=== PATIENT | female | born 1995 | race Caucasian/White ===

== ENCOUNTER 2019-02-13 19:05 | Emergency (ER) | payer BC ==
[2019-02-13 19:38] VITALS: RESP 18
[2019-02-13] MEDS ORDERED: SODIUM CHLORIDE 0.9% 1,000 ML IV STA (20:10)
[2019-02-13 20:34] LABS: Basophils # (A) 0.1 k/uL (0-0.2); Basophils % (A) 1 %; Eosinophils # (A) 0.2 k/uL (0-0.7); Eosinophils % (A) 2 %; HCT 39.2 % (34.0-46.0); HGB 13.1 gm/dL (11.4-16.0); Lymphocytes # (A) 2.8 k/uL (1.0-4.8); Lymphocytes % (A) 32 %; MCH 29.3 pg (25.0-35.0); MCHC 33.5 g/dL (31.0-37.0); MCV 87.3 fL (80.0-100.0); Mean Platelet Volume 7.4; Monocytes # (A) 0.4 k/uL (0-1.0); Monocytes % (A) 5 %; Neutrophils # (A) 5.1 k/uL (1.3-7.7); Neutrophils % (A) 58 %; Platelet Count 291 k/uL (150-450); RBC 4.49 m/uL (3.80-5.40); RDW 14.6 % (11.5-15.5); WBC 8.8 k/uL (3.8-10.6)
[2019-02-13 20:45] LABS: ALT 67 U/L (9-52); AST 40 U/L (14-36); Albumin 4.3 g/dL (3.5-5.0); Alkaline Phosphatase 89 U/L (38-126); Amylase 151 U/L (30-110); Anion Gap 12 mmol/L; Blood Urea Nitrogen 13 mg/dL (7-17); Calcium 9.2 mg/dL (8.4-10.2); Carbon Dioxide 22 mmol/L (22-30); Chloride 107 mmol/L (98-107); Glucose 100 mg/dL (74-99); Lipase 672 U/L (23-300); Potassium 3.5 mmol/L (3.5-5.1); Sodium 141 mmol/L (137-145); Total Bilirubin 0.4 mg/dL (0.2-1.3); Total Protein 7.3 g/dL (6.3-8.2)
[2019-02-13 20:50] LABS: Appearance,Urine Clear (Clear); Bacteria,Urine Rare /hpf; Bilirubin,Urine Negative (Negative); Blood,Urine Moderate (Negative); Color,Urine Yellow; Glucose,Urine (UA) Negative (Negative); Ketones,Urine Negative (Negative); Leukocyte Esterase,Urine Negative (Negative); Mucus,Urine Rare /hpf; Nitrite,Urine Negative (Negative); Protein,Urine Negative (Negative); RBC,Urine 68 /hpf (0-5); Specific Gravity,Urine 1.021 (1.001-1.035); Squamous Epithelial Cell,Urine 2 /hpf (0-4); Urobilinogen,Urine <2.0 mg/dL (<2.0); WBC,Urine 3 /hpf (0-5)
--- NOTE | 2019-02-13 21:15 | XR ---
EXAMINATION TYPE: XR chest 2V DATE OF EXAM: 02/13/2019 COMPARISON: NONE HISTORY: Chest and right-sided pain. History of tobacco use. TECHNIQUE: Frontal and lateral views of the chest are obtained. FINDINGS: There is no focal air space opacity, pleural effusion, or pneumothorax seen. The cardiac silhouette size is within normal limits. Overlying bra strap is present. The osseous structures are intact. IMPRESSION: No acute cardiopulmonary process.
--- NOTE | 2019-02-13 21:26 | US ---
EXAMINATION TYPE: US transvaginal DATE OF EXAM: 02/13/2019 COMPARISON: NONE CLINICAL HISTORY: Pain. Abnormal bleeding TECHNIQUE: Transvaginal (TV). Date of LMP: 01/31/2019 EXAM MEASUREMENTS: Uterus: 9.2 x 4.1 x 5.5 cm Endometrial Stripe: 0.7 cm Right Ovary: 3.0 x 1.9 x 2.3 cm Left Ovary: 2.9 x 1.8 x 2.3 cm 1. Uterus: Anteverted wnl 2. Endometrium: wnl 3. Right Ovary: wnl 4. Left Ovary: Cystic area 2.1 x .9 x .9cm. Spectral, color and waveform doppler imaging shows good arterial and venous flow within the ovaries 5. Bilateral Adnexa: wnl 6. Posterior cul-de-sac: wnl Heterogeneous uterus is seen. Endometrial stripe measures 7 mm which is within normal limits. No free fluid in pelvic cul-de-sac. Both ovaries are present. There is poorly defined roughly 1 cm follicle presumed in the periphery of the left ovary. No suspicious adnexal lesions are seen. IMPRESSION: Fairly unremarkable study.
--- NOTE | 2019-02-13 22:08 | US ---
EXAM: US Abdomen Limited, Right Upper Quadrant CLINICAL HISTORY: Pain TECHNIQUE: Real-time ultrasound of the right upper quadrant with image documentation. COMPARISON: No relevant prior studies available. FINDINGS: Liver: Liver is mildly enlarged measuring up to 18.7 cm. No intrahepatic bile duct dilation. Gallbladder: No gallstones, sludge, wall thickening or pericholecystic fluid. Negative sonographic Quiroz's sign. Common bile duct: Common bile duct measures 5 mm. No stones. No dilation. Pancreas: Pancreas is obscured by bowel gas. Right kidney: Right kidney measures up to 10.0 cm. No stones. No hydronephrosis. IMPRESSION: No acute findings.
--- NOTE | 2019-02-13 22:26 | ED ---
General Adult HPI - General Source: patient Mode of arrival: ambulatory Limitations: no limitations <Sabrina Crowell - Last Filed: 02/13/19 23:51> <Sienna Levy - Last Filed: 02/14/19 07:37> - General Chief complaint: Vaginal Bleeding Stated complaint: abd pain Time Seen by Provider: 02/13/19 19:41 - History of Present Illness Initial comments: 24-year-old female patient presents to the emergency department today for multiple complaints. Patient states she is having vaginal bleeding. Patient states that her period ended 2 weeks ago however she started bleeding again 2 days ago. Patient states that she is having to wear a tampon. Patient states that she has never had bleeding between periods before. She states she is currently sexually active with a new partner. Denies any abnormal vaginal d ischarge prior to onset of bleeding. She denies any pelvic pain. Patient is also reporting right upper quadrant abdominal pain is been going on for the last several days. Patient states the pain is sharp and stabbing and worsens when she takes a deep breath or coughs. Patient states it feels like it is under her ribs. Patient denies history of similar symptoms. Denies nausea or vomiting. Denies any constipation or diarrhea. States she is tolerating oral intake without difficulty. Denies any fever or chills. Patient denies any recent rash, shortness breath, chest pain, back pain, numbness, tingling, dizziness, weakness, headache, visual changes, or any other complaints. (Sabrina Crowell) - Related Data Allergies Allergy/AdvReac Type Severity Reaction Status Date / Time No Known Allergies Allergy Verified 02/13/19 19:37 Review of Systems ROS Other: All systems not noted in ROS Statement are negative. <Sabrina Crowell - Last Filed: 02/13/19 23:51> ROS Other: All systems not noted in ROS Statement are negative. <Sienna Levy - Last Filed: 02/14/19 07:37> ROS Statement: Those systems with pertinent positive or pertinent negative responses have been documented in the HPI. Past Medical History Past Medical History: No Reported History History of Any Multi-Drug Resistant Organisms: None Reported Past Surgical History: No Surgical Hx Reported Past Psychological History: ADD/ADHD, Anxiety, Depression Smoking Status: Current every day smoker Past Alcohol Use History: Occasional Past Drug Use History: None Reported <Sabrina Crowell M - Last Filed: 02/13/19 23:51> General Exam Limitations: no limitations General appearance: alert, in no apparent distress, other (Physical well- developed, well-nourished adult female patient in no acute distress. Vital signs upon presentation are temperature 98.5F, pulse 79, respirations 18, blood pressure 159/100, pulse ox 98% on room air.) Eye exam: Present: normal appearance, PERRL, EOMI. Absent: scleral icterus, conjunctival injection, periorbital swelling ENT exam: Present: normal exam, normal oropharynx, mucous membranes moist Respiratory exam: Present: normal lung sounds bilaterally. Absent: respiratory distress, wheezes, rales, rhonchi, stridor Cardiovascular Exam: Present: regular rate, normal rhythm, normal heart sounds. Absent: systolic murmur, diastolic murmur, rubs, gallop, clicks GI/Abdominal exam: Present: soft, tenderness (midepigastric, negative quiroz's sign), normal bowel sounds. Absent: distended, guarding, rebound, rigid External exam: Present: normal external exam Speculum exam: Present: vaginal bleeding By manual exam: Present: normal by manual exam Neurological exam: Present: alert, oriented X3, CN II-XII intact Psychiatric exam: Present: normal affect, normal mood Skin exam: Present: warm, dry, intact, normal color. Absent: rash <Sabrina Crowell M - Last Filed: 02/13/19 23:51> Course Vital Signs 02/13/19 02/13/19 19:34 22:25 Temperature 98.5 F 97.8 F Pulse Rate 79 74 Respiratory 18 18 Rate Blood Pressure 159/100 153/90 O2 Sat by Pulse 98 100 Oximetry Medical Decision Making - Lab Data Result diagrams: 02/13/19 20:20 02/13/19 20:20 - Radiology Data Radiology results: report reviewed, image reviewed <Sabrina Crowell - Last Filed: 02/13/19 23:51> - Lab Data Result diagrams: 02/13/19 20:20 02/13/19 20:20 <Sienna Levy - Last Filed: 02/14/19 07:37> - Medical Decision Making 24-year-old female patient presents to the emergency department today for evaluation of right upper quadrant abdominal pain and vaginal bleeding. Physical examination did reveal a mild amount of dark red vaginal bleeding. No adnexal or uterine tenderness. Lower abdomen was soft and nontender. Patient did have some midepigastric tenderness, negative Quiroz sign. Labs reviewed and did reveal elevated AST at 40, ALT 67, amylase 151, lipase 672. Urinalysis showed red blood cells consistent with her vaginal bleeding. I did perform a chest x-ray prior to labs coming back as patient also has had a cough for the last couple of days, this is unremarkable. Transvaginal ultrasound shows no acute abnormalities. Did perform ultrasound of the right upper quadrant abdomen which showed no acute abnormalities other than enlarged liver. Did discuss findings and results with the patient. Did discuss pancreatitis as a cause for her abdominal pain. She is instructed follow clear liquid diet for the next 1-2 days and advance as tolerated. She is instructed to follow-up with her primary care physician for referral to gastroenterology. Instructed follow with her health and physical education professor for dysfunction uterine bleeding. Return parameters were discussed in detail. She verbalizes understanding and agrees with this plan. (Sabrina Crowell) I was available for consultation in the emergency department. The history and physical exam were done by the midlevel provider. I was consulted for this patient's care. I reviewed the case with the midlevel provider and based on their presentation of the patient, I agree with the assessment, medical decision making and plan of care as documented. (Sienna Levy) - Lab Data Lab Results 02/13/19 02/13/19 02/13/19 Range/Units 20:20 20:20 20:20 WBC 8.8 (3.8-10.6) k/uL RBC 4.49 (3.80-5.40) m/uL Hgb 13.1 (11.4-16.0) gm/dL Hct 39.2 (34.0-46.0) % MCV 87.3 (80.0-100.0) fL MCH 29.3 (25.0-35.0) pg MCHC 33.5 (31.0-37.0) g/dL RDW 14.6 (11.5-15.5) % Plt Count 291 (150-450) k/uL Neutrophils % 58 % Lymphocytes % 32 % Monocytes % 5 % Eosinophils % 2 % Basophils % 1 % Neutrophils # 5.1 (1.3-7.7) k/uL Lymphocytes # 2.8 (1.0-4.8) k/uL Monocytes # 0.4 (0-1.0) k/uL Eosinophils # 0.2 (0-0.7) k/uL Basophils # 0.1 (0-0.2) k/uL Sodium 141 (137-145) mmol/L Potassium 3.5 (3.5-5.1) mmol/L Chloride 107 (98-107) mmol/L Carbon Dioxide 22 (22-30) mmol/L Anion Gap 12 mmol/L BUN 13 (7-17) mg/dL Creatinine 0.58 (0.52-1.04) mg/dL Est GFR (CKD-EPI)AfAm >90 (>60 ml/min/1.73 sqM) Est GFR (CKD-EPI)NonAf >90 (>60 ml/min/1.73 sqM) Glucose 100 H (74-99) mg/dL Calcium 9.2 (8.4-10.2) mg/dL Total Bilirubin 0.4 (0.2-1.3) mg/dL AST 40 H (14-36) U/L ALT 67 H (9-52) U/L Alkaline Phosphatase 89 (38-126) U/L Total Protein 7.3 (6.3-8.2) g/dL Albumin 4.3 (3.5-5.0) g/dL Amylase 151 H (30-110) U/L Lipase 672 H (23-300) U/L Urine Color Urine Appearance (Clear) Urine pH (5.0-8.0) Ur Specific [place] (1.001-1.035) Urine Protein (Negative) Urine Glucose (UA) (Negative) Urine Ketones (Negative) Urine Blood (Negative) Urine Nitrite (Negative) Urine Bilirubin (Negative) Urine Urobilinogen (<2.0) mg/dL Ur Leukocyte Esterase (Negative) Urine RBC (0-5) /hpf Urine WBC (0-5) /hpf Ur Squamous Epith Cells (0-4) /hpf Urine Bacteria (None) /hpf Urine Mucus (None) /hpf Urine HCG, Qual Not Detected (Not Detectd) 02/13/19 Range/Units 20:20 WBC (3.8-10.6) k/uL RBC (3.80-5.40) m/uL Hgb (11.4-16.0) gm/dL Hct (34.0-46.0) % MCV (80.0-100.0) fL MCH (25.0-35.0) pg MCHC (31.0-37.0) g/dL RDW (11.5-15.5) % Plt Count (150-450) k/uL Neutrophils % % Lymphocytes % % Monocytes % % Eosinophils % % Basophils % % Neutrophils # (1.3-7.7) k/uL Lymphocytes # (1.0-4.8) k/uL Monocytes # (0-1.0) k/uL Eosinophils # (0-0.7) k/uL Basophils # (0-0.2) k/uL Sodium (137-145) mmol/L Potassium (3.5-5.1) mmol/L Chloride (98-107) mmol/L Carbon Dioxide (22-30) mmol/L Anion Gap mmol/L BUN (7-17) mg/dL Creatinine (0.52-1.04) mg/dL Est GFR (CKD-EPI)AfAm (>60 ml/min/1.73 sqM) Est GFR (CKD-EPI)NonAf (>60 ml/min/1.73 sqM) Glucose (74-99) mg/dL Calcium (8.4-10.2) mg/dL Total Bilirubin (0.2-1.3) mg/dL AST (14-36) U/L ALT (9-52) U/L Alkaline Phosphatase (38-126) U/L Total Protein (6.3-8.2) g/dL Albumin (3.5-5.0) g/dL Amylase (30-110) U/L Lipase (23-300) U/L Urine Color Yellow Urine Appearance Clear (Clear) Urine pH 6.0 (5.0-8.0) Ur Specific [place] 1.021 (1.001-1.035) Urine Protein Negative (Negative) Urine Glucose (UA) Negative (Negative) Urine Ketones Negative (Negative) Urine Blood Moderate H (Negative) Urine Nitrite Negative (Negative) Urine Bilirubin Negative (Negative) Urine Urobilinogen <2.0 (<2.0) mg/dL Ur Leukocyte Esterase Negative (Negative) Urine RBC 68 H (0-5) /hpf Urine WBC 3 (0-5) /hpf Ur Squamous Epith Cells 2 (0-4) /hpf Urine Bacteria Rare H (None) /hpf Urine Mucus Rare H (None) /hpf Urine HCG, Qual (Not Detectd) - Radiology Data Two-view x-ray of the chest is obtained. Report reviewed in its entirety. Impression by Dr. Zhu shows no acute cardiopulmonary process. Transvaginal ultrasound was obtained. Report was reviewed in its entirety. Impression by Dr. Zhu shows fairly unremarkable study. Right upper quadrant abdominal ultrasound was obtained. First its entirety. Impression by Dr. Torres shows no acute findings. (Sabrina Crowell) Disposition Is patient prescribed a controlled substance at d/c from ED?: No Time of Disposition: 22:26 <Sabrina Crowell - Last Filed: 02/13/19 23:51> <Sienna Levy - Last Filed: 02/14/19 07:37> Clinical Impression: Dysfunctional uterine bleeding, Pancreatitis Disposition: HOME SELF-CARE Condition: Good Instructions (If sedation given, give patient instructions): Dysfunctional Ut erine Bleeding (ED), Pancreatitis (ED) Additional Instructions: Increase fluids. Clear liquid diet for the next 2 days. Follow-up with your primary care physician for recheck in 1-2 days. Follow-up with gastroenterology for recheck as soon as possible. Follow-up with her health and physical education professor for further evaluation. Return to emergency department immediately for any new, worsening, or concerning symptoms. Referrals: Nimisha Mills MD [Primary Care Provider] - 1-2 days
[2019-02-13 22:29] VITALS: BP 153/90; PULSE 74; TEMP 97.8
== END 2019-02-13 22:36 | disposition home or self-care (01) ==
LOC: EC 19:05
DX: N93.8 Other specified abnormal uterine and vaginal bleeding (principal); K85.90 Acute pancreatitis without necrosis or infection, unspecified; R74.0 Nonspecific elevation of levels of transaminase and lactic acid dehydrogenase [LDH]; R74.8 Abnormal levels of other serum enzymes; R16.0 Hepatomegaly, not elsewhere classified; R05 Cough; F17.200 Nicotine dependence, unspecified, uncomplicated
CPT/HCPCS: 36415; 71046; 76705; 76830; 80053; 81001; 81025; 82150; 83690; 85025; 93975; 96360; 96361; 99284

== ENCOUNTER 2021-09-11 10:31 | Emergency (ER) | payer BC, OTHER ==
[2021-09-11 10:40] VITALS: RESP 18; TEMP 98
--- NOTE | 2021-09-11 10:49 | ED ---
General Adult HPI - General Chief complaint: Alcohol Stated complaint: ETOH Time Seen by Provider: 09/11/21 10:43 Source: EMS Mode of arrival: EMS Limitations: no limitations - History of Present Illness Initial comments: Dictation was produced using [employer] dictation software. please excuse any grammatical, word or spelling errors. Chief Complaint: 26-year-old female presents to emergency department for alcohol intoxication. History of Present Illness: Patient is a 26-year-old female presents to the emergency department for acute alcohol intoxication. Patient drinks approximately 1 pint of liquor daily. She's been doing this for the last several months. Patient last alcoholic beverage was early this morning. He checked into alcohol rehab however they refused admission as above the level of her alcohol intoxication. Pain starts in her to the emergency department to be evaluated. Patient has no medical complaints at this time. She does however report that she fell and hurt her face while drunk. She states that the event occurred 1 week ago. Denies any numbness and paresthesias. She has no abdominal pain. The ROS documented in this emergency department record has been reviewed and confirmed by me. Those systems with pertinent positive or negative responses have been documented in the HPI. All other systems are other negative and/or noncontributory. PHYSICAL EXAM: General Impression: Alert and oriented x3, not in acute distress, inebriated, smells of EtOH HEENT: Normocephalic atraumatic, extra-ocular movements intact, pupils equal and reactive to light bilaterally, mucous membranes moist. Cardiovascular: Heart regular rate and rhythm Chest: Able to complete full sentences, no retractions, no tachypnea Abdomen: abdomen soft, non-tender, non-distended, no organomegaly Musculoskeletal: Pulses present and equal in all extremities, no peripheral edema Motor: no focal deficits noted Neurological: CN II-XII grossly intact, no focal motor or sensory deficits noted Skin: Intact with no visualized rashes Psych: Normal affect and mood ED course: 26-year-old female redirected here from alcohol rehab facility for acute alcohol intoxication. Vital signs upon arrival are within acceptable limits. Laboratory evaluation obtained. CBC remarkable. Metabolic panel shows a 132, mild gap acidosis, alcohol 43. Clinical presentation consistent with a daily to reactive intoxication with alcoholic ketoacidosis. Patient given fluids. Patient be admitted to [facility]. - Related Data Allergies Allergy/AdvReac Type Severity Reaction Status Date / Time lamotrigine [From Lamictal] Allergy Rash/Hives Verified 09/11/21 10:40 Review of Systems ROS Statement: Those systems with pertinent positive or pertinent negative responses have been documented in the HPI. ROS Other: All systems not noted in ROS Statement are negative. Past Medical History Past Medical History: No Reported History History of Any Multi-Drug Resistant Organisms: None Reported Past Surgical History: No Surgical Hx Reported Past Psychological History: ADD/ADHD, Anxiety, Depression Smoking Status: Current every day smoker Past Alcohol Use History: Abuse, Daily, Heavy, Occasional Past Drug Use History: None Reported General Exam Limitations: no limitations Course Vital Signs 09/11/21 10:36 Temperature 98 F Pulse Rate 98 Respiratory 18 Rate Blood Pressure 112/69 O2 Sat by Pulse 98 Oximetry Medical Decision Making - Lab Data Result diagrams: 09/11/21 12:10 09/11/21 10:48 Lab Results 09/11/21 09/11/21 09/11/21 Range/Units 10:40 10:48 12:10 WBC 4.8 (3.8-10.6) k/uL RBC 4.26 (3.80-5.40) m/uL Hgb 14.9 (11.4-16.0) gm/dL Hct 42.2 (34.0-46.0) % MCV 99.3 (80.0-100.0) fL MCH 35.0 (25.0-35.0) pg MCHC 35.2 (31.0-37.0) g/dL RDW 14.6 (11.5-15.5) % Plt Count 182 (150-450) k/uL MPV 7.9 Neutrophils % 51 % Lymphocytes % 40 % Monocytes % 5 % Eosinophils % 0 % Basophils % 1 % Neutrophils # 2.5 (1.3-7.7) k/uL Lymphocytes # 1.9 (1.0-4.8) k/uL Monocytes # 0.3 (0-1.0) k/uL Eosinophils # 0.0 (0-0.7) k/uL Basophils # 0.0 (0-0.2) k/uL Macrocytosis Slight Sodium 132 L (137-145) mmol/L Potassium 4.0 (3.5-5.1) mmol/L Chloride 96 L (98-107) mmol/L Carbon Dioxide 19 L (22-30) mmol/L Anion Gap 17 mmol/L BUN 9 (7-17) mg/dL Creatinine 0.67 (0.52-1.04) mg/dL Est GFR (CKD-EPI)AfAm >90 (>60 ml/min/1.73 sqM) Est GFR (CKD-EPI)NonAf >90 (>60 ml/min/1.73 sqM) Glucose 115 H (74-99) mg/dL Calcium 8.3 L (8.4-10.2) mg/dL Magnesium 1.7 (1.6-2.3) mg/dL Urine HCG, Qual Not Detected (Not Detectd) Serum Alcohol 483 H* mg/dL Disposition Clinical Impression: Alcoholic ketoacidosis Disposition: ADMITTED IP TO THIS HOSP Condition: Fair Referrals: Nigel Avery [Primary Care Provider] - 1-2 days
[2021-09-11 11:14] LABS: African American GFR (CKD) >90 (>60 ml/min/1.73 sqM); Anion Gap 17 mmol/L; Blood Urea Nitrogen 9 mg/dL (7-17); Calcium 8.3 mg/dL (8.4-10.2); Carbon Dioxide 19 mmol/L (22-30); Chloride 96 mmol/L (98-107); Glucose 115 mg/dL (74-99); Magnesium 1.7 mg/dL (1.6-2.3); Non-African American GFR(CKD) >90 (>60 ml/min/1.73 sqM); Sodium 132 mmol/L (137-145)
[2021-09-11 11:27] LABS: Alcohol 483 mg/dL
[2021-09-11] MEDS ORDERED: ACETAMINOPHEN TAB 325 MG TAB PO STA (12:11)
--- NOTE | 2021-09-11 12:55 | CT ---
EXAMINATION TYPE: [facility] DATE OF EXAM: 09/11/2021 COMPARISON: None INDICATION: ams, fall DLP: combined DLP 1192 mGycm, Automated exposure control for dose reduction was used. CONTRAST: None CT of the brain is performed utilizing 3 mm thick sections through the posterior fossa and 3 mm thick sections through the remaining calvarium. Study is performed within 24 hours of arrival to the hosp [facility]. No abnormal hyperdensity is present to suggest an acute intracranial hemorrhage. No mass lesion is evident. No acute infarcts are evident. Ventricles and sulci are appropriate for the patient age. Paranasal sinuses and mastoid air cells within the [id number] are clear. Symptoms persist, follow-up MRI can be performed. IMPRESSIONS: 1. No acute intracranial process. EXAMINATION TYPE: CT brain [facility] con DATE OF EXAM: 09/11/2021 COMPARISON: None HISTORY: ams, fall CT DLP: combined DLP 1192 mGycm CONTRAST: None CT of the cervical spine is performed in the axial plane at 2 mm thick sections. Reconstructed image s in the coronal, and sagittal plane are reviewed on the computer. No acute fractures are evident. Vertebral body alignment is normal. Disc heights are preserved. Vertebral body heights are preserved. No spinal canal stenosis is evident No neural foraminal stenosis is evident. IMPRESSIONS: 1. No acute osseous abnormality cervical spine
--- NOTE | 2021-09-11 12:57 | CT ---
EXAMINATION TYPE: CT facial bones wo con DATE OF EXAM: 09/11/2021 COMPARISON: None HISTORY: ams, fall, pain CT DLP: combined DLP 119 mGycm Automated exposure control for dose reduction was used. TECHNIQUE: CT scan of the sinuses is performed without contrast, axial images are obtained, coronal r eformatted images are also reviewed. FINDINGS: Changes of chronic sinusitis are noted. Osseous structures intact. Visualized orbital struc tures are symmetric. Intracranial structures symmetric. Oropharynx and nasopharynx have a normal appe arance. Lies parotid and submandibular glands have a normal appearance. There is a piercing along the right nostril. IMPRESSION: No acute fracture.
[2021-09-11 13:03] LABS: Basophils % (A) 1 %; Eosinophils % (A) 0 %; HCT 42.2 % (34.0-46.0); HGB 14.9 gm/dL (11.4-16.0); Lymphocytes # (A) 1.9 k/uL (1.0-4.8); Lymphocytes % (A) 40 %; MCHC 35.2 g/dL (31.0-37.0); MCV 99.3 fL (80.0-100.0); Macrocytosis Slight; Mean Platelet Volume 7.9; Monocytes # (A) 0.3 k/uL (0-1.0); Monocytes % (A) 5 %; Neutrophils # (A) 2.5 k/uL (1.3-7.7); Neutrophils % (A) 51 %; Platelet Count 182 k/uL (150-450); RBC 4.26 m/uL (3.80-5.40); RDW 14.6 % (11.5-15.5); WBC 4.8 k/uL (3.8-10.6)
[2021-09-11] MEDS ORDERED: NALOXONE 0.4 MG/ML 1 ML VIAL IV PRN (13:45)
[2021-09-11] MEDS ORDERED: SODIUM CHLORIDE 0.9% 1,000 ML IV SCH (13:45)
[2021-09-11] MEDS ORDERED: LORazepam 2 MG/ML INJ IV PRN ×3 (13:48)
[2021-09-11] MEDS ORDERED: THIAMINE 100 MG/ML 2 ML VIAL IM STA (13:48)
[2021-09-11 15:01] VITALS: BP 132/78; PULSE 100
--- NOTE | 2021-09-11 15:05 | P.HPIM ---
History of Present Illness H&P Date: 09/11/21 The patient is a 26-year-old female with a PMH of EtOH abuse who presents to the emergency room with alcohol intoxication. The patient reports that she has been drinking roughly a pint of vodka daily for the past 5 years. She was seen at [facility] earlier today but was sent to the emergency room as she was actively intoxicated. The patient reports that her last drink was at 8 AM this morning and she presented to [facility] at 9 am. The patient reports feeling significantly better ever since presenting to the emergency room. She denied ever experiencing alcohol withdrawal seizures, delirium tremens, or being hospitalized for her drinking. The patient further denied chest discomfort, shortness of breath, fever, chills, cough. Also denied nausea, vomiting, abdominal pain, diarrhea. Patient reports that she wishes to be discharged to [facility]. Discussed the case signed watch case polisher in detail who subsequently called [facility] and confirmed that they are happy to come picker and sorter load and unload the patient. There are also able to treat the patient for possible detoxification. Spoke with the patient regarding this who was eager to be discharged. The patient had been ambulating in the hallways in the emergency room and was able to ambulate on my physical examination without difficulty. Laboratory evaluation was reviewed. Review of systems: Pertinent positives and negatives as discussed in HPI, a complete review of systems was performed and all other systems are negative. Physical examination: General: non toxic, no distress, appears at stated age, obese Derm: no unusual rashes/lesions no unusual ecchymoses, warm, dry Head: atraumatic, normocephalic, symmetric Eyes: EOMI, no lid lag, anicteric sclera, pupils equal round reactive to light ENT: Nose and ears atraumatic, no thrush, no pharyngeal erythema Neck: No thyromegaly, no cervical lymphadenopathy, trachea midline, supple Mouth: no lip lesion, mucus membranes dry Cardiovascular: S1S2 reg, no murmur, positive posterior tibial pulse bilateral, no edema, capillary refill less than 2 seconds Lungs: CTA bilateral, no rhonchi, no rales , no accessory muscle use Abdominal: soft, nontender to palpation, no guarding, no appreciable organomegaly, normal bowel sounds Ext: no gross muscle atrophy, muscle strength 5 out of 5 in all 4 extremities grossly, no contractures, Neuro: CN II-XI grossly intact, light touch intact all 4 extremities, finger to nose within normal limits, Psych: Alert, oriented, appropriate affect Assessment/plan Alcohol intoxication, improved -The patient is to be discharged to [facility] as per her wishes -Currently ambulating well, non-tremulous, and denying any active complaints -Advised the patient on the importance of alcohol cessation -Prescribed thiamine and multivitamin Past Medical History Past Medical History: No Reported History History of Any Multi-Drug Resistant Organisms: None Reported Past Surgical History: No Surgical Hx Reported Past Psychological History: ADD/ADHD, Anxiety, Depression Smoking Status: Current every day smoker Past Alcohol Use History: Abuse, Daily, Heavy, Occasional Past Drug Use History: None Reported - Past Family History Mother Family Medical History: Cancer Medications and Allergies Home Medications Medication Instructions Recorded Confirmed Type Multivitamin [Multivitamins Adult 1 each PO DAILY #30 tablet 09/11/21 Rx Gummies] Norgestimate-Ethinyl Estradiol 1 tab PO DAILY 09/11/21 09/11/21 History [Sprintec 28 Day Tablet] Thiamine [Vitamin B-1] 100 mg PO BID-W/MEALS #30 tab 09/11/21 Rx Allergies Allergy/AdvReac Type Severity Reaction Status Date / Time lamotrigine [From Lamictal] Allergy Rash/Hives Verified 09/11/21 14:18 Physical Exam Vitals: Vital Signs Temp Pulse Resp BP Pulse Ox 09/11/21 10:36 98 F 98 18 112/69 98 Intake and Output 09/10/21 09/11/21 09/11/21 22:59 06:59 14:59 Other: Weight 104.326 kg Results CBC & Chem 7: 09/11/21 12:10 09/11/21 10:48 Labs: Abnormal Lab Results - Last 24 Hours (Table) 09/11/21 Range/Units 10:48 Sodium 132 L (137-145) mmol/L Chloride 96 L (98-107) mmol/L Carbon Dioxide 19 L (22-30) mmol/L Glucose 115 H (74-99) mg/dL Calcium 8.3 L (8.4-10.2) mg/dL Serum Alcohol 483 H* mg/dL
[2021-09-11] MEDS ORDERED: THIAMINE 100 MG TAB PO SCH (17:30)
== END 2021-09-11 15:01 | disposition other institution (70) ==
LOC: EC 10:31 → UNDOADMOB 14:02 → 6NMEDSUR 14:02 → EC 15:01
DX: F10.129 Alcohol abuse with intoxication, unspecified (principal); E87.2 Acidosis; F17.200 Nicotine dependence, unspecified, uncomplicated; Z88.8 Allergy status to other drugs, medicaments and biological substances
CPT/HCPCS: 36415; 70450; 70486; 72125; 80048; 80320; 81025; 83735; 85025; 99285